=== PATIENT | female | born 1985 | race Two or more races ===

== ENCOUNTER → 2018-06-04 | Outpatient (CLI) | payer BC ==
[2016-02-21 15:00] VITALS: BP 131/81
[~2018-06-04] MED LIST: CEPH-264 PO; IBUP-1060 PO; LEVO125T5 PO; LEVO175T5 PO; METR500T PO; NORG1TAB6 PO
--- NOTE | 2018-06-04 13:08 | KCIC ---
EXAM: Chest, 2 views. HISTORY: Bronchitis. Cough. COMPARISON: None. FINDINGS: 2 views of chest are obtained. There is no infiltrate, pleural effusion or pneumothorax. The heart is normal in size. IMPRESSION: No acute pulmonary finding. Electronically signed by: Teetee Mcnair MD (06/04/2018 1:05 PM) [place] [id number]
== END | disposition home or self-care (01) ==
LOC: KCIC 12:44
PROVIDERS: ATTEND Nurse Practitioner Family
DX: J40 Bronchitis, not specified as acute or chronic (principal)
CPT/HCPCS: 71046

== ENCOUNTER → 2019-03-13 | Outpatient (CLI) | payer BC ==
[2016-02-21 15:00] VITALS: BP 131/81
--- NOTE | 2019-03-13 16:04 | KCIC ---
EXAM: Chest, 2 views. HISTORY: Cough. COMPARISON: 06/04/2018 FINDINGS: 2 views of the chest are obtained. There is no infiltrate, pleural effusion or pneumothorax. The heart is normal in size. IMPRESSION: No acute pulmonary finding. Electronically signed by: Teetee Mcnair MD (03/13/2019 4:01 PM) [facility]
== END | disposition home or self-care (01) ==
LOC: KCIC 15:33
PROVIDERS: ATTEND Nurse Practitioner Family
DX: R05 Cough (principal)
CPT/HCPCS: 71046

== ENCOUNTER → 2019-03-22 | Outpatient (CLI) | payer BC ==
[2016-02-21 15:00] VITALS: BP 131/81
[~2019-03-22] MED LIST changes: +GADOTERATE 7.5 MMOL/15ML VIAL. IVP ONE
--- NOTE | 2019-03-25 10:16 | KCIC ---
MRI Brain with and without contrast History: Galactorrhea, history of Chiari surgery Technique: Multiplanar, multi sequential pre and postcontrast MR imaging was performed of the brain. Comparison: December 18, 2013 Findings: There is some motion degradation. There is no new significant signal abnormality of the brain parenchyma. There is no nodular parenchymal or leptomeningeal enhancement. There has been interval parasagittal suboccipital decompression. There is enhancing presumable fibrosis at surgical site. Location of cerebellar tonsils is similar. Pituitary gland is again small, no new lesion identified. There is partial opacification of right ethmoid air cells although decreased anteriorly, also improved aeration of the right frontal sinus in interval. There is variable mild to moderate left and mild right maxillary sinus mucosal thickening as seen previously. There is again increased CSF signal of the optic nerve sheaths and disconjugate gaze. There is questionable small cyst to the right of the pineal gland 0.4 cm, unchanged. Impression: 1. Pituitary gland is again small in size, no new pituitary lesion identified. 2. There has been suboccipital decompression, enhancing presumable fibrosis at surgical site. 3. There is paranasal sinus mucosal thickening as stated. Electronically signed by: Hakan Torres MD (03/25/2019 10:13 AM) [facility]
== END | disposition home or self-care (01) ==
LOC: KCIC MRI 13:34
PROVIDERS: ATTEND Nurse Practitioner Family
DX: O92.6 Galactorrhea (principal); J34.89 Other specified disorders of nose and nasal sinuses; Z90.89 Acquired absence of other organs; Z90.49 Acquired absence of other specified parts of digestive tract
CPT/HCPCS: 70553; A9575

== ENCOUNTER 2020-04-25 18:00 | Emergency (ER) | payer BC ==
[~2020-04-25] VITALS: Ht 160 cm; Wt 106.8 kg
[~2020-04-25 18:00] MED LIST changes: -GADOTERATE 7.5 MMOL/15ML VIAL. IVP ONE
[2020-04-25 19:00] VITALS: BP 147/88
[2020-04-25] MEDS ORDERED: ONDANSETRON ODT 4 MG TAB.RAPDIS. PO ONE (19:15)
[2020-04-25] MEDS ORDERED: ONDA4TAB12 PO (19:34)
--- NOTE | 2020-04-25 19:34 | PHYS DOC ---
Past Medical History Past Medical History: Other Additional Past Medical Histor: thyroid (DON KING APRN) Past Surgical History: Additional Past Surgical Histo: x3, THYROIDECTOMY (DON KING APRN) Smoking Status: Never Smoker Alcohol Use: Rarely Drug Use: None (DON KING APRN) General Adult EDM: Chief Complaint: FLU SYMPTOM HPI: HPI: Patient is a 34 year [id number] female patient presenting to the ED today complaining of nausea and vomiting that began last night after having keita. Patient is in the ED with the entire family with the same complaints. Also complaining of abdominal discomfort during the vomiting episode. Denies any fever. Denies any chance she is . (DON KING APRN) Review of Systems: Review of Systems: Constitutional: Denies fever or chills. [] Eyes: Denies change in visual acuity. [] HENT: Denies nasal congestion or sore throat. [] Respiratory: Denies cough or shortness of breath. [] Cardiovascular: Denies chest pain or edema. [] GI: Reports abdominal pain, nausea, denies vomiting, bloody stools or diarrhea. [] : Denies dysuria. [] Musculoskeletal: Denies back pain or joint pain. [] Integument: Denies rash. [] Neurologic: Denies headache, focal weakness or sensory changes. [] Psychiatric: Denies depression or anxiety. [] (DON KING APRN) Heart Score: Risk Factors: Risk Factors: DM, Current or recent (<one month) smoker, HTN, HLP, family history of CAD, obesity. Risk Scores: Score 0 - 3: 2.5% MACE over next 6 weeks - Discharge Home Score 4 - 6: 20.3% MACE over next 6 weeks - Admit for Clinical Observation Score 7 - 10: 72.7% MACE over next 6 weeks - Early Invasive Strategies (DON KING APRN) Current Medications: Current Medications Medications (Trade) Dose Ordered Sig/Ángel Start Time Stop Time Status Last Admin Dose Admin Ondansetron HCl (Zofran Odt) 4 mg 1X ONCE 04/25/20 19:15 04/25/20 19:16 DC (DON KING APRN) Allergies: Allergies: Allergies Coded Allergies Type Severity Reaction Last Updated Verified No Known Drug Allergies 05/14/15 No (DON KING APRN) Physical Exam: PE: Constitutional: Well developed, well nourished, no acute distress, non-toxic appearance. [] HENT: Normocephalic, atraumatic, bilateral external ears normal, oropharynx moist, no oral exudates, nose normal. [] Eyes: PERRLA, EOMI, conjunctiva normal, no discharge. [] Neck: Normal range of motion, no tenderness, supple, no stridor. [] Cardiovascular:Heart rate regular rhythm, no murmur [] Lungs & Thorax: Bilateral breath sounds clear to auscultation [] Abdomen: Bowel sounds normal, soft, no tenderness, no masses, no pulsatile masses. [] Skin: Warm, dry, no erythema, no rash. [] Back: No tenderness, no CVA tenderness. [] Extremities: No tenderness, no cyanosis, no clubbing, ROM intact, no edema. [] Neurologic: Alert and oriented X 3, normal motor function, normal sensory function, no focal deficits noted. [] Psychologic: Affect normal, judgement normal, mood normal. [] (DON KING APRN) Current Patient Data: Vital Signs: Vital Signs Date Time Temp Pulse Resp B/P (MAP) Pulse Ox O2 Delivery O2 Flow Rate FiO2 04/25/20 19:00 98.0 67 13 147/88 (107) 99 Room Air 98.0 (DON KING APRN) EKG: EKG: [] (DON KING APRN) Radiology/Procedures: Radiology/Procedures: [] (DON KING APRN) Course & Med Decision Making: Course & Med Decision Making Pertinent Labs and Imaging studies reviewed. (See chart for details) This is a 34-year-old female patient presenting to the ED today with nausea and vomiting. Symptoms began after having keita yesterday. Patient is in the ED with an entire family with the same complaint. They were all tested for COVID- 19. Discharged on Zofran, instructed to push fluids and maintain good hand hygiene. (DON KING APRN) Dragon Disclaimer: Dragon Disclaimer: This electronic medical record was generated, in whole or in part, using a voice recognition dictation system. (DON KING APRN) Departure Departure Impression: Primary Impression: Nausea and vomiting Qualified Codes: R11.2 - Nausea with vomiting, unspecified Additional Impression: Person under investigation for COVID-19 Disposition: 01 DC HOME SELF CARE/HOMELESS Condition: STABLE Referrals: LASHA CARNEY APRN (PCP) Follow-up with your doctor in 1 week Patient Instructions: Nausea and Vomiting, [id number] Additional Instructions: You were evaluated for nausea and vomiting. Your symptoms are likely viral. We tested you for COVID-19. We will call you when results are available next week. In the meantime quarantine yourself, push fluids, maintain good and hygiene, take Tylenol or Motrin for pain or fever. Take the prescribed Zofran for nausea or vomiting. Scripts Ondansetron (ONDANSETRON ODT) 4 Mg Tab.rapdis 1 TAB PO PRN Q6-8HRS, #16 TAB Prov: DON KING APRN 04/25/20 Attending Signature Attending Signature I have reviewed the PA/CUSTOMER ACCOUNT TECHNICIAN's note and plan of care. I was available for consultation as needed during the patient's visit in the emergency department. I agree with the clinical impression, plan, and disposition. (RYAN CARRANZA DO) DON KING APRN Apr 25, 2020 19:34 RYAN CARRANZA DO Apr 26, 2020 03:02
== END 2020-04-25 20:00 | disposition home or self-care (01) ==
LOC: ER 18:00
DX: R11.2 Nausea with vomiting, unspecified (principal); R10.9 Unspecified abdominal pain; Z20.828 Contact with and (suspected) exposure to other viral communicable diseases
CPT/HCPCS: 99283; C9803; U0003

== ENCOUNTER → 2020-09-25 | Outpatient (CLI) | payer BC ==
[~2020-09-25] MED LIST changes: +ONDA4TAB12 PO
--- NOTE | 2020-09-25 10:51 | KCIC ---
EXAM: CT Abdomen and Pelvis without IV contrast CLINICAL HISTORY: Reason: RIGHT RENAL STONE / Spl. Instructions: / History: . COMPARISON: none TECHNIQUE: Helical CT of the abdomen and pelvis without intravenous contrast. Axial, coronal and sagi ttal reformatted images were generated. PQRS compliance statement - One or more of the following individualized dose reduction techniques wer e utilized for this study: 1. Automated exposure control 2. Adjustment of the mA and/or kV according to patient size 3. Use of iterative reconstruction technique FINDINGS: Lack of intravenous contrast limits evaluation of solid organs, vasculature, and lymph nodes. Lower chest: 3 mm left lower lobe lung nodule is seen. Abdomen and Pelvis: No focal liver lesion. Cholecystectomy clips are seen. No biliary duct dilatation. Pancreas and splee n are unremarkable. Adrenals are normal. Nonobstructing right lower pole renal calculus. No hydroneph rosis. No hydroureter. Bladder is unremarkable. Appendix is not seen. No pericecal inflammatory change. Moderate colonic stool content is seen. No sm all or large bowel dilatation. No bowel obstruction. No abdominal or pelvic ascites. No abdominal or pelvic lymphadenopathy. Bones: Degenerative changes of the spine and SI joints. No aggressive osseous lesion is seen. IMPRESSION: Punctate nonobstructing right lower pole renal calculus. No ureteral or bladder calculi are noted. Electronically signed by: Abdirahman Balbuena MD (09/25/2020 10:48 AM) [facility]
== END ==
LOC: KCIC CT 08:35
PROVIDERS: ATTEND Nurse Practitioner Family
DX: N20.0 Calculus of kidney (principal); R91.1 Solitary pulmonary nodule; Z90.49 Acquired absence of other specified parts of digestive tract
CPT/HCPCS: 74176

== ENCOUNTER 2021-08-16 18:58 | Emergency (ER) | payer BC, OTHER ==
[~2021-08-16] VITALS: Ht 160 cm; Wt 113.9 kg
[2021-08-16 19:45] VITALS: BP 158/98
== END 2021-08-16 21:20 | disposition left against medical advice (07) ==
LOC: ER 18:58
DX: R05.9 Cough, unspecified (principal); R51.9 Headache, unspecified; R11.0 Nausea; R10.10 Upper abdominal pain, unspecified; R10.30 Lower abdominal pain, unspecified; Z53.21 Procedure and treatment not carried out due to patient leaving prior to being seen by health care provider

== ENCOUNTER → 2021-08-23 | Outpatient (CLI) | payer BC, OTHER ==
[2021-08-16 19:45] VITALS: BP 158/98
--- NOTE | 2021-08-24 07:48 | KCIC ---
EXAMINATION: CT ABDOMEN+PELVIS WO CLINICAL HISTORY: Hematuria, history of right renal stone. History of cholecystectomy. TECHNIQUE: Imaging of the abdomen and pelvis was performed without intravenous contrast using standar d technique, scanning from just above the dome of the diaphragm to the symphysis pubis. Unenhanced i maging is limited for the evaluation of some intra-abdominal and pelvic pathology. CT Dose Reduction Employed: One or more of the following individualized dose reduction techniques wer e utilized for this examination: 1. Automated exposure control 2. Adjustment of the mA and/or kV ac cording to patient size 3. Use of iterative reconstruction technique. COMPARISON: 09/25/2020 FINDINGS: Visualized heart and lungs unremarkable. Cholecystectomy. Liver, pancreas, spleen, and adrenal glands unremarkable. Tiny nonobstructive calculus lower pole right kidney, unchanged from prior study. No evidence of ashleigh tional urinary calculi or obstructive uropathy. Left kidney unremarkable. Minimally filled urinary bladder. Uterus and ovaries unremarkable on limited evaluation. No dilated bowel. Appendix within normal limits. No abdominal aortic or iliac artery aneurysm. Mildly enlarged left pelvic lymph node measuring up to 1.5 cm in short axis. Multiple additional prominent but nonenlarged lymph nodes in the lower abdomen and pelvis. No evidence of acute osseous abnormality. IMPRESSION: Unchanged tiny nonobstructive right renal calculus. Mildly enlarged left pelvic lymph node and multiple additional prominent but nonenlarged lymph nodes in the lower abdomen and pelvis, nonspecific. Electronically signed by: Everton Rivera DO (08/23/2021 4:19 PM) [facility]
--- NOTE | 2021-08-24 07:48 | KCIC ---
EXAMINATION: XR CHEST 2V CLINICAL HISTORY: Cough, SOA, past hx. COVID. EXAM DATE/TIME: 08/23/2021 2:47 PM COMPARISON: 03/13/2019 FINDINGS: Lines, Tubes, and Devices: None. Cardiomediastinal Silhouette: Within normal limits. Lungs and Pleura: Minimal right basilar opacities, similar to slightly more prominent compared to bryan or study. No evidence of pleural effusion or pneumothorax. Bones and Soft Tissues: No acute osseous abnormality. IMPRESSION: Minimal right basilar opacities as described, nonspecific and may be related to subsegmental atelecta sis but infectious process is not excluded. Electronically signed by: Everton Rivera DO (08/23/2021 4:39 PM) [facility]
== END ==
LOC: KCIC CT 14:45
PROVIDERS: ATTEND Nurse Practitioner Family
DX: N20.0 Calculus of kidney (principal); R59.0 Localized enlarged lymph nodes; R91.8 Other nonspecific abnormal finding of lung field; Z90.49 Acquired absence of other specified parts of digestive tract; R31.9 Hematuria, unspecified; R05.9 Cough, unspecified; Z86.16 Personal history of COVID-19
CPT/HCPCS: 71046; 74176